=== PATIENT | female | born 1985 | race Hispanic/Latino ===

== ENCOUNTER → 2024-05-07 | Outpatient (CLI) | payer OTHER ==
[~2024-05-07] MED LIST: GADOTERATE MEGLUMINE 10 MMOL/20 ML VIAL IV ONE
== END | disposition home or self-care (01) ==
LOC: RAH 11:46
PROVIDERS: ATTEND Internal Medicine Medical Oncology
DX: N63.15 Unspecified lump in the right breast, overlapping quadrants (principal); C50.612 Malignant neoplasm of axillary tail of left female breast
CPT/HCPCS: C8908; A9575; 77049

== ENCOUNTER → 2024-08-06 | Outpatient (CLI) | payer MEDICAID ==
[~2024-08-06] MED LIST changes: -GADOTERATE MEGLUMINE 10 MMOL/20 ML VIAL IV ONE; +IOHEXOL 350 MG/ML 100ML INFUS..BTL IV ONE
--- NOTE | 2024-08-06 11:44 | HMCIMG ---
CT CHEST W/CONTRAST REASON: LEFT BREAST CA COMPARISON: None. TECHNIQUE: Images are obtained from thoracic inlet through the lung bases following IV contrast, 100 cc Omnipaque 350. TECHNIQUE: Multiple sequential axial images of the chest were obtained from the thoracic inlet through the upper pole of the kidneys without intravenous contrast administration. FINDINGS: Lungs are clear. There are no pulmonary nodules. There are are no focal infiltrates or pleural effusions. Heart size is normal with no vascular congestion. There is no hilar or mediastinal lymphadenopathy. There is no internal mammary or axillary lymphadenopathy. Chest wall structures appear normal. Visualized upper abdominal structures are unremarkable. IMPRESSION: 1. Negative postcontrast CT chest. CT was performed with one or more following dose reduction techniques: automated exposure control, adjustment of the mA and kv according to patient's size, or use of a iterative reconstruction technique.
== END | disposition home or self-care (01) ==
LOC: RAH 10:49
PROVIDERS: ATTEND Internal Medicine Medical Oncology
DX: C50.612 Malignant neoplasm of axillary tail of left female breast (principal)
CPT/HCPCS: 71260; Q9967